=== PATIENT | female | born 1950 | race Caucasian/White ===

== ENCOUNTER 2017-02-25 12:38 | Inpatient (IN) | payer MEDICARE ==
[2017-02-24 23:10] VITALS: BP 147/72
[2017-02-24 23:40] VITALS: BP 139/75
[~2017-02-25] VITALS: Ht 157.5 cm; Wt 64.5 kg
[2017-02-25] VITALS (16 sets, daily range): BP systolic 100–149; BP diastolic 58–98
--- NOTE | ~2017-02-25 | EC ---
PATIENT:MARGO MONTELONGO DATE OF SERVICE: 02/25/17 SEX: F MEDICAL RECORD: [id number] DATE OF : [birth year] LOCATION:[facility] AGE OF PATIENT: 66 ADMISSION DATE: 02/25/17 REFERRING PHYSICIAN: INTERPRETING PHYSICIAN: MARIJA APARICIO M.D. ECHOCARDIOGRAM REPORT ECHO CHARGES 4 ECHO COMPLETE CLINICAL DIAGNOSIS: CHF HX CAD/STENTS/HTN ECHOCARDIOGRAPHIC MEASUREMENTS (adult normal given) AC root (d.<3.7cm) 3.0 LV Septum d (<1.2 cm> 1. Valve Excursion 1.7 LV Septum (systole) 1.6 Left Atria (s.<4.0cm> 4.3 LVPW d(<1.2cm) 1.4 RV (d.<2.3cm) 3.1 LVPW (sytole) 1.5 LV diastole(<5.6CM) 5.3 MV E-F(>70mm/sec) LV systole 4.3 LVOT Diameter 1.9 MV exc.(>10mm) 1.2 Est.ejection fraction (50-75%) Pericardial Effusion N DOPPLER: LVIT A 67.0 E 102 LA RVSP 27 LVOT 97 AOP1/2T 352 Asc. Ao 172 RVOT 88 RA PA 105 AV Gradient Peak 11.77 AV Mean 6.28 AV Area 1.6 MV Gradient Peak 4.97 MV Mean 1.80 MV Area COMMENTS: [employer]: Darrel LAUREN Vice President Media Relations:2 Dr. Aparicio TAPE# PACS DATE OF SERVICE: 02/26/2017 INDICATION: Non-Q-wave myocardial infarction. DESCRIPTION: Left ventricle demonstrates left ventricle hypertrophy. There is mild LV dysfunction noted. Estimated ejection fraction is in the order of 40% to 45%. No wall motion abnormalities are noted. Mitral valve is structurally normal. There is mild regurgitation seen. Left atrium is mildly dilated. The aortic valve leaflets are thickened. There is mild insufficiency seen, but no evidence of stenosis. Right ventricle is mildly dilated. Tricuspid valve is ECHOCARDIOGRAM REPORT [id number] MARGO MONTELONGO structurally normal. There is mild regurgitation seen. Right atrium is normal sized. There is no pericardial effusion noted. IMPRESSION: 1. Left ventricular hypertrophy with mild left ventricular dysfunction with ejection fraction of 40% to 45%. No wall motion abnormalities are noted. 2. Mild mitral regurgitation. 3. Mild aortic insufficiency. 4. Mild tricuspid regurgitation. TRANSINT:[id number] Voice Confirmation ID: [id number] DOCUMENT ID: [id number] MARIJA APARICIO M.D. CC: [id number] DICTATION DATE: 02/26/17 152 GREEN MARKETING ANALYST: 02/26/17 1737 DIS IN 02/26/17 [facility] [address] [place] [address]
[~2017-02-25 12:38] MED LIST: BAYER CHEWABLE81 MG PO; CHANTIX 1 MG TAB1 MG PO; COLACE100 MG PO; HYDROCODON-ACE1 EAC7 PO; IBUPROFEN200 MG PO; NICORETTE2 MG PO; PLAVIX75 MG PO; PRAVACHOL40 MG PO; SENOKOT-S TABLE1 TAB PO; ZANTAC150 MG PO; ZESTRIL40 MG PO; ZOLOFT100 MG PO
[2017-02-25 13:06] LABS: BASOPHILS 0.1 % (0-2); EOSINOPHILS 0.1 % (0-7); HEMATOCRIT 36.4 % (36.0-48.0); HEMOGLOBIN 12.4 g/dL (12-16); IMMATURE GRANULOCYTES 0.3 % (0-5); LYMPHOCYTES 14.4 % (15-50); MCH 29.3 pg (26.0-34.0); MCHC 34.1 g/dL (31.0-37.0); MCV 86.1 fL (80.0-100.0); MONOCYTES 15.1 % (2-11); RBC 4.23 10x6/uL (4.00-5.40); RDW 14.4 % (11.5-14.5); WBC 9.2 10x3/uL (4.8-10.8)
[2017-02-25 13:07] LABS: APTT 30.4 SECONDS (22.8-39.4); INR 1.09 (0.85-1.17)
[2017-02-25 13:10] LABS: PLATELET COUNT 7 10x3/uL (130-400)
[2017-02-25 13:22] LABS: D-DIMER-QUANTITATIVE 14.54 ug/mLFEU (0.20-0.54); PLATELET ESTIMATE DECREASED
[2017-02-25 13:24] LABS: ALBUMIN 2.9 g/dL (3.4-5.0); ALKALINE PHOSPHATASE 98 U/L (46-116); ALT (SGPT) 42 U/L (10-68); BILIRUBIN - TOTAL 2.83 mg/dL (0.2-1.3); CARBON DIOXIDE 23.9 mmol/L (21.0-32.0); CHLORIDE - SERUM 96 mmol/L (98-107); CHOL - HDL RATIO 5.9 ratio (2.3-4.1); CHOLESTEROL, TOTAL 296 mg/dL (0-200); CKMB 54.2 U/L (0.0-3.6); CREATININE - SERUM 1.2 mg/dL (0.6-1.3); HDL CHOLESTEROL 50 mg/dL (32-96); LDL CHOLESTEROL 203 mg/dL (0-100); LDL-HDL RATIO 4.1 ratio (1.5-3.5); POTASSIUM - SERUM 3.6 mmol/L (3.5-5.1); PRO BNP 9886 pg/mL (0-125); PROTEIN - SERUM 7.3 g/dL (6.4-8.2); SODIUM 131 mmol/L (136-145); TRIGLYCERIDE 216 mg/dL (30-200); UREA NITROGEN 26 mg/dL (7-18); eGFR NON AFRICAN AMERICAN 47 mL/min (90-120)
[2017-02-25 13:25] LABS: CALC OSMOLALITY 287 mosm/kg (275-300); CREATINE KINASE 884 UL (21-215)
[2017-02-25 13:26] LABS: GLUCOSE 462 mg/dL (74-106)
[2017-02-25 13:27] LABS: TROPONIN-I 40.137 ng/mL (0.000-0.060)
[2017-02-25 13:43] LABS: BILIRUBIN - DIRECT 0.25 mg/dL (0.00-0.30)
[2017-02-25 13:47] LABS: LDH 2001 U/L (81-234)
[2017-02-25 14:44] LABS: AMYLASE - SERUM 83 U/L (25-115); LIPASE 1384 U/L (73-393)
--- NOTE | 2017-02-25 17:13 | NUR ---
ARRIVED 1650 PER STRETCHER FROM ER. PLATELETS INFUSING. RIGHT AC PATIENT STATES SHE HAS NOT TAKEN ANY OF HER MEDS FOR LAST 3 MONTHS. AWAKE AND ALERT. SKIN WARM AND DRY. DR. STEWARD HERE. COMPLAINTS OF A HEAD ACHE. OXYGEN AT 2 LITERS PER NC. IV SITE WITHOUT REDNESS OR SWELLING. IV LEFT HAND SALINE LOCKED. VERY COOPERATIVE FRIENDLY CHEERFUL. DRINKING ALOT OF FLUID. DR. DENNISON HERE
--- NOTE | 2017-02-25 17:25 | NUR ---
NO PEDAL PULSE RIGHT FOOT. ANKLE PULSE LEFT FOOT WITH DOPPLER. COMPLAINTING OF NAUSEA NOW.
--- NOTE | 2017-02-25 19:15 | NUR ---
SHIFT ASSESSMENT COMPLETED. SEE ASSESSMENT. LETHARGIC. AWAKENS EASILY AND ANSWERS QUESTIONS APPROPRIATELY. ON 02 @ 2LPM/NC. EYES CLOSE DURING ASSESSMENT WHILE BEING ASSESSED. RT TOP OF FOOT PULSE PALPATED WEAKLY AND AUDIBLE BY DOPPLER. LEFT FOOT STRONG PULSE AND AUDIBLE BY DOPPLER TO TOP OF FOOT (PEDAL PULSE). SCD WRAPS ON AND WORKING TO LE'S BILATERALLY. LEFT AC PIV S.L. READY FOR PLTS TO BE INFUSED. LEFT WRIST 20G PIV WITH NS @ 10ML/HR. NSR ON THE MONITOR IN THE 80'S. AWAITING HER BROTHER TO COME VISIT HER.
--- NOTE | 2017-02-25 20:30 | NUR ---
BROTHER IN AT BEDSIDE. UPDATE GIVEN. QUESTIONS ANSWERED. WILL MONITOR.
[2017-02-25 22:10] LABS: BASOPHILS 0 % (0-2); EOSINOPHILS 0 % (0-7); HEMATOCRIT 31.3 % (36.0-48.0); HEMOGLOBIN 10.6 g/dL (12-16); IMMATURE GRANULOCYTES 0.3 % (0-5); LYMPHOCYTES 13.6 % (15-50); MCH 29.3 pg (26.0-34.0); MCHC 33.9 g/dL (31.0-37.0); MCV 86.5 fL (80.0-100.0); MEAN PLATELET VOLUME 9.5 fL (7.4-10.4); MONOCYTES 17.9 % (2-11); NEUTROPHILS 68.2 % (40-80); PLATELET COUNT 80 10x3/uL (130-400); RBC 3.62 10x6/uL (4.00-5.40); WBC 8.6 10x3/uL (4.8-10.8)
[2017-02-25 22:30] LABS: CKMB 49.1 U/L (0.0-3.6); CREATINE KINASE 1060 UL (21-215); TROPONIN-I 48.159 ng/mL (0.000-0.060)
[2017-02-26] VITALS (16 sets, daily range): BP systolic 100–147; BP diastolic 49–74; Ht 157.5 cm; Wt 64.5 kg
--- NOTE | 2017-02-26 01:20 | NUR ---
WANTED TO GET UP OOB. TOOK OFF MONITORING AND AMBULATED WITH A MODERATELY STEADY GAIT IN ROOM. SAT ON BSC TO URINATE. <30ML OF HUBER COLORED URINE NOTED IN BSC. BACK TO BED. WILL MONITOR.
--- NOTE | 2017-02-26 03:00 | NUR ---
SITTING UP IN BED WITH HEAD DOWN TO CHEST. NO ACUTE DISTRESS NOTED. WILL MONITOR.
--- NOTE | 2017-02-26 04:00 | NUR ---
REASSESSMENT COMPLETED. SEE ASSESSMENT. LAYING ON RT SIDE. OPENED EYES BRIEFLY FOR A SECOND. NO CHANGES SINCE PREVIOUS ASSESSMENT EXCEPT MORE CALM AND RESTING. WILL MONITOR.
--- NOTE | 2017-02-26 05:40 | NUR ---
NOT HAD MUCH URINE OUTPUT THIS SHIFT. BLADDER SCANNED AND A MAX OF 51ML NOTED IN THE BLADDER. DOES NOT FEEL THE NEED TO URINATE. WILL MONITOR.
[2017-02-26 06:42] LABS: BASOPHILS 0.1 % (0-2); EOSINOPHILS 0.2 % (0-7); HEMATOCRIT 28.3 % (36.0-48.0); HEMOGLOBIN 9.5 g/dL (12-16); IMMATURE GRANULOCYTES 0.4 % (0-5); MCHC 33.6 g/dL (31.0-37.0); MCV 86.3 fL (80.0-100.0); MONOCYTES 19.4 % (2-11); NEUTROPHILS 57.9 % (40-80); RBC 3.28 10x6/uL (4.00-5.40); RDW 15.5 % (11.5-14.5); WBC 10.3 10x3/uL (4.8-10.8)
[2017-02-26 06:43] LABS: PLATELET COUNT 21 10x3/uL (130-400)
[2017-02-26 06:57] LABS: ALBUMIN 3.1 g/dL (3.4-5.0); ALKALINE PHOSPHATASE 85 U/L (46-116); ALT (SGPT) 43 U/L (10-68); BILIRUBIN - TOTAL 1.46 mg/dL (0.2-1.3); CALCIUM 8.5 mg/dL (8.5-10.1); CARBON DIOXIDE 27.3 mmol/L (21.0-32.0); CHLORIDE - SERUM 94 mmol/L (98-107); POTASSIUM - SERUM 3.2 mmol/L (3.5-5.1); PRO BNP 28160 pg/mL (0-125); PROTEIN - SERUM 7.2 g/dL (6.4-8.2); SODIUM 131 mmol/L (136-145)
[2017-02-26 06:59] LABS: AMYLASE - SERUM 177 U/L (25-115); CALC OSMOLALITY 282 mosm/kg (275-300); CREATINE KINASE 978 UL (21-215); CREATININE - SERUM 2.4 mg/dL (0.6-1.3); GLUCOSE 245 mg/dL (74-106); LIPASE 2152 U/L (73-393); TROPONIN-I 56.521 ng/mL (0.000-0.060); UREA NITROGEN 46 mg/dL (7-18); eGFR NON AFRICAN AMERICAN 21 mL/min (90-120)
--- NOTE | 2017-02-26 07:03 | NUR ---
REPORT GIVEN TO EILEEN MARTINEZ RN. CALLING ANSWERING SERVICE FOR DR. STEWARD AND JESI.
--- NOTE | 2017-02-26 09:49 | NUR ---
[facility] CALLED NO BEDS AVAILABLE AT THIS TIME, PATIENT IS ON THE LIST. ACCEPTING PHYSICAN IS DR. ONEILL. DR. STEWARD HERE. INSTRUCTED TO GIVE PLATELETS. DR. STEWARD TALKED WITH PATIENT AND P ATIENTS BROTHER ABOUT TRANSFER TO [facility] WHEN BED AVAILABLE. DR. TUCKER HERE.
--- NOTE | 2017-02-26 09:51 | NUR ---
PATIENT LETHARGY, WILL WOKEN UP ASKED IF SHE COULD GO HOME. COMPLIANTED OF LEFT ARM PAIN FROM K RIDER, RATE TURNED DOWN TO 30 ML HOUR. HANDS and feet are cold. thready pulses in hands. feet warmer today than on admit. iv left hand and ac without redness or swelling. abd firm and tender . hands lens inserter strong and equal. monitor sr with st elevation. sleeping. no distress noted. platelets infusing without reaction.
--- NOTE | 2017-02-26 13:17 | NUR ---
PATIENT TRANSFERING TO [facility] PER AMBULANCE REPORT CALLED TO JO RAMIRES RN AT [facility] GOING TO ROOM E412. BROTHER PATO NOTIFIED OF TRANSFER. GOMEZ CATH INSERT PER GRIPPER MACHINE OPERATOR AT REQUEST OF [facility]. IMMEDIATE RETURN OF CLOUDY YELLOW URINE LESS THAN 200 CC OF URINE RETURNED. PATIENT TOLERATED WELL. UNIT OF PLATELETS GIVEN WITHOUT REACTION. MORPHINE 4 MG IV GIVEN FOR GENERAIZED DISCOMFORT AND SOME ABD PAIN. PATIENT IS AWAKE AND ALERT BILATERAL LUNG SOUNDS CLEAR ABD SOFT WITH BOWEL SOUNDS PRESENT. AMBULANCE CALLED FOR TRANSFER
--- NOTE | 2017-02-26 14:00 | NUR ---
[facility] NOTIFIED THAT PATIENT HAS LEFT PER AMBULANCE . TALKED WITH MIRYAM
--- NOTE | 2017-02-26 18:56 | NUR ---
Late entry 0950 Received request for transfer to [facility]. DR Ryan has spoken with the [facility] MD DR Pickering. TC to [facility] & spoke with Olena. No ICU bed available. Will call back when bed is available. Nursing automatic machines supervisor, elian Davidson. 1100- Received call back with notification of bed. Received [facility] transfer back agreement. Paperwork completed and faxed back w/ H/P, consults, recent labs & radiology reports. Disc prepared for transfer w/ x/r studies. Chart copy prepared. Cobra, PCS and nursing transfer for completed. Primary nurse spoke with the patient and her brother. TC to [facility] for notification of [facility] transfer and needs. DR Tirado, DR Ryan and DR Aparicio notified of acceptance. Nursing automatic machines supervisor aware. Report called by primary nurse. Patient transferred via ground ambulance to [facility]. Patient may require plasmaphresis which is not available at [facility].
== END 2017-02-26 14:33 | disposition short-term general hospital (02) | DRG 280 ==
LOC: D.ER 12:38 → D.SDCHOLD 15:42 → D.ICU 15:42
PROVIDERS: Emergency Medicine; Legal Medicine; ADMIT Family Medicine
DX: I21.4 Non-ST elevation (NSTEMI) myocardial infarction (principal); K85.90 Acute pancreatitis without necrosis or infection, unspecified; N17.9 Acute kidney failure, unspecified; I25.10 Atherosclerotic heart disease of native coronary artery without angina pectoris; R51 Headache; Z87.891 Personal history of nicotine dependence; K59.00 Constipation, unspecified; E78.5 Hyperlipidemia, unspecified; I69.919 Unspecified symptoms and signs involving cognitive functions following unspecified cerebrovascular disease; E11.9 Type 2 diabetes mellitus without complications; I10 Essential (primary) hypertension; I73.9 Peripheral vascular disease, unspecified; D69.6 Thrombocytopenia, unspecified; F32.9 Major depressive disorder, single episode, unspecified